=== PATIENT | male | born 1965 | race Caucasian/White ===

== ENCOUNTER → 2018-09-03 | Outpatient (CLI) | payer OTHER ==
[~2018-09-03] MED LIST: BACL10 PO; ETOD500CR PO; MUPIROCIN15 GM TOP; Neurontin 300300 MG PO; TRAM50 PO
== END ==
LOC: LAB EV 09:52 → LAB SHORT 09:52
DX: L02.01 Cutaneous abscess of face (principal)
CPT/HCPCS: 87070; 87075; 87205

== ENCOUNTER 2018-09-05 07:30 | Inpatient (IN) | payer OTHER ==
[~2018-09-05] VITALS: Ht 175.3 cm; Wt 237.0 kg
[2018-10-18] MEDS ORDERED: ACET325 PO (14:29)
--- NOTE | 2018-10-24 09:40 | NUR ---
Ambulatory in Day Surgery. History, Chart, Medications and Allergies reviewed before start of procedure.Patient confirms NPO status and agrees with scheduled surgery.
--- NOTE | 2018-10-24 15:27 | NUR ---
10/24/18 1527 Savannah Michael VERIFICATIONS: EDIT CHART.
--- NOTE | 2018-10-24 18:39 | NUR ---
SUMMARY PT IS TOLERATING PO INTAKE, PAIN IS MANAGED WITH PO OXYCODONE. VSS, POLAR PACK TO RIGHT HIP, DRSG REMAINS C/D/I. ABX INFUSED PER EMAR.
--- NOTE | 2018-10-25 05:31 | NUR ---
SHIFT SUMMARY PT A&O X4 T/O SHIFT. POD# 1 R MARCELINO; DRESSING CDI T/O SHIFT. ICE TO R HIP PRN. PPPX4; PT DENIES N/T IN EXT. PAIN MANGED PER EMAR. BED MOBILE. PT DENIES NAUSEA; TOLERATES PO INTAKE WELL. RA; DENIES SOB. BREONNA'S AND SCD'S TO BLE'S. CALL LIGHT IN REACH; PT DEMONSTRATES USE. WCTM UNTIL REPORT TO DAY SHIFT RN.
[2018-10-25 06:00] LABS: BASOPHILS ABSOLUTE AUTO 0.02 K/mm3 (0.00-0.23); BASOPHILS PERCENT AUTO 0 % (0-2); EOSINOPHILS ABSOLUTE AUTO 0.05 K/mm3 (0.00-0.68); EOSINOPHILS PERCENT AUTO 0 % (0-6); Hematocrit 37.8 % (37.0-53.0); Hemoglobin 12.2 g/dL (13.5-17.5); IMMATURE GRAN ABSOLUTE AUTO 0.04 K/mm3 (0.00-0.10); IMMATURE GRAN PERCENT AUTO 0 % (0-1); LYMPHOCYTES ABSOLUTE AUTO 1.96 K/mm3 (0.84-5.20); LYMPHOCYTES PERCENT AUTO 17 % (21-46); MONOCYTES ABSOLUTE AUTO 1.03 K/mm3 (0.16-1.47); MONOCYTES PERCENT AUTO 9 % (4-13); Mean Corpuscular HGB Conc 32.3 g/dL (31.5-36.5); Mean Corpuscular Volume 93 fL (80-100); Mean Platelet Volume 9.9 fL (9.1-12.4); NEUTROPHILS PERCENT AUTO 74 % (41-73); Platelet Count 286 K/mm3 (150-400); RDW Coefficient Variation 12.9 % (11.7-14.2); Red Blood Cell Count 4.06 M/mm3 (4.30-5.90)
[2018-10-25 06:19] LABS: Anion Gap 7 mmol/L (6-16); Blood Urea Nitrogen 16 mg/dL (8-24); Bun/Creatinine Ratio 17.6 (12.0-20.0); CO2, Blood 27 mmol/L (21-32); Calcium, Blood 8.5 mg/dL (8.5-10.1); Chloride, Blood 104 mmol/L (98-108); Creatinine, Blood 0.91 mg/dL (0.60-1.20); Glomerular Filtration Rate >60 (60-); Glucose, Blood 129 mg/dL (70-99); Magnesium, Blood 2.3 mg/dL (1.6-2.4); Sodium, Blood 138 mmol/L (136-145)
[2018-10-25] MEDS ORDERED: OXYC5 PO (17:23)
[2018-10-25] MEDS ORDERED: ASPI325EC PO (17:40)
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
== END 2018-10-25 17:55 | disposition home or self-care (01) | DRG 470 ==
LOC: PRE IP 07:30 → SURS 10-24 09:08 → PRE IP 10-24 10:45 → SURS 10-24 15:46
PROVIDERS: ADMIT Orthopaedic Surgery
PROC: 8E0YXBZ Computer Assisted Procedure of Lower Extremity (ICD-10-PCS; 2018-10-24)
PROC: 0SR903A Replacement of Right Hip Joint with Ceramic Synthetic Substitute, Uncemented, Open Approach (ICD-10-PCS; principal; 2018-10-24 10:45)
DX: M16.51 Unilateral post-traumatic osteoarthritis, right hip (principal); T14.90XS Injury, unspecified, sequela; I10 Essential (primary) hypertension; J44.9 Chronic obstructive pulmonary disease, unspecified; Z88.2 Allergy status to sulfonamides; Z87.891 Personal history of nicotine dependence
CPT/HCPCS: 36415; 72170; 80048; 83735; 85025; 86850; 86900; 86901; 88300; 97110; 97116; 97162; 97166; 97530; 97535; C1713; C1776; J0171; J0360; J0690; J0735; J1100; J1885; J2250; J2405; J2795; J3010; J3370; J7120

== ENCOUNTER 2019-07-11 05:12 | Emergency (ER) | payer OTHER ==
[~2019-07-11] VITALS: Ht 175.3 cm; Wt 106.1 kg
[~2019-07-11 05:12] MED LIST changes: +ACET325 PO; +ASPI325EC PO; +OXYC5 PO
[2019-07-11 05:59] LABS: BASOPHILS ABSOLUTE AUTO 0.09 K/mm3 (0.00-0.23); BASOPHILS PERCENT AUTO 1 % (0-2); EOSINOPHILS ABSOLUTE AUTO 0.43 K/mm3 (0.00-0.68); EOSINOPHILS PERCENT AUTO 6 % (0-6); Hematocrit 45.8 % (37.0-53.0); Hemoglobin 15.3 g/dL (13.5-17.5); IMMATURE GRAN ABSOLUTE AUTO 0.01 K/mm3 (0.00-0.10); IMMATURE GRAN PERCENT AUTO 0 % (0-1); LYMPHOCYTES ABSOLUTE AUTO 3.39 K/mm3 (0.84-5.20); LYMPHOCYTES PERCENT AUTO 44 % (21-46); MONOCYTES ABSOLUTE AUTO 0.68 K/mm3 (0.16-1.47); MONOCYTES PERCENT AUTO 9 % (4-13); Mean Corpuscular HGB 30.1 pg (26.0-34.0); Mean Corpuscular HGB Conc 33.4 g/dL (31.5-36.5); Mean Corpuscular Volume 90 fL (80-100); Mean Platelet Volume 9.9 fL (9.1-12.4); NEUTROPHILS ABSOLUTE AUTO 3.17 K/mm3 (1.96-9.15); NEUTROPHILS PERCENT AUTO 41 % (41-73); Platelet Count 308 K/mm3 (150-400); RDW Coefficient Variation 12.3 % (11.7-14.2); RDW Standard Deviation 40.9 fL (35.1-46.3); Red Blood Cell Count 5.08 M/mm3 (4.30-5.90); White Blood Cell Count 7.77 K/mm3 (4.00-11.30)
[2019-07-11] MEDS ORDERED: BACL10 (06:12)
[2019-07-11 06:26] LABS: Alanine Aminotransfer (ALT/SGP 37 U/L (12-78); Albumin, Blood 3.8 g/dL (3.4-5.0); Alk Phos 83 U/L (50-136); Anion Gap 9 mmol/L (6-16); Aspartate Aminotrans (AST/SGOT 24 U/L (12-37); Bilirubin, Total 0.6 mg/dL (0.1-1.0); Blood Urea Nitrogen 21 mg/dL (8-24); Bun/Creatinine Ratio 19.6 (12.0-20.0); CO2, Blood 25 mmol/L (21-32); Calcium, Blood 8.9 mg/dL (8.5-10.1); Chloride, Blood 107 mmol/L (98-108); Creatinine, Blood 1.07 mg/dL (0.60-1.20); Globulin, Blood 3.8 g/dL (2.2-4.0); Glomerular Filtration Rate >60 (60-); Glucose, Blood 100 mg/dL (70-99); Potassium, Blood 3.7 mmol/L (3.5-5.5); Sodium, Blood 141 mmol/L (136-145); Total Protein, Blood 7.6 g/dL (6.4-8.2); Troponin I <0.015 ng/mL (0.000-0.040)
== END 2019-07-11 07:05 | disposition home or self-care (01) ==
LOC: ER 05:12
PROVIDERS: Emergency Medicine
DX: R07.9 Chest pain, unspecified (principal); Z87.891 Personal history of nicotine dependence; Z88.2 Allergy status to sulfonamides; Z88.1 Allergy status to other antibiotic agents; Z79.891 Long term (current) use of opiate analgesic; Z79.899 Other long term (current) drug therapy
CPT/HCPCS: 71046; 80053; 83690; 84484; 85025; 93005; 93010; 99285-25

== ENCOUNTER → 2021-01-15 | Outpatient (CLI) | payer OTHER ==
[~2021-01-15] MED LIST changes: +BACL10
[2021-01-16 09:11] LABS: HBSAG SCREEN Negative (Negative); HCV ANTIBODY <0.1 (0.0-0.9); HIV SCREEN 4TH GENERATION WRFX Non Reactive (Non Reactive)
== END ==
LOC: LAB SHORT 08:45 → LAB EV 08:45
PROVIDERS: Physician Assistant
DX: Z11.59 Encounter for screening for other viral diseases (principal); Z11.4 Encounter for screening for human immunodeficiency virus [HIV]; Z20.9 Contact with and (suspected) exposure to unspecified communicable disease
CPT/HCPCS: 84460; 86317; 86803; 87340; 87389

== ENCOUNTER → 2021-08-26 | Outpatient (CLI) | payer OTHER ==
[2021-08-27 20:11] LABS: CHLAMYDIA TRACHOMATIS, NAA Negative (Negative)
== END | disposition home or self-care (01) ==
LOC: LAB SHORT 15:52
PROVIDERS: Family Medicine
DX: Z20.9 Contact with and (suspected) exposure to unspecified communicable disease (principal)
CPT/HCPCS: 87491; 87591

== ENCOUNTER 2021-10-16 11:32 | Day surgery (SDC) | payer OTHER ==
[~2021-10-16] VITALS: Ht 175.3 cm; Wt 84.5 kg
[~2021-10-16 11:32] MED LIST changes: +NALOXONE HC1 MG/1 ML; +Norco 10-325 T1 EACH PO; +VITAMIN D310 MC4 PO
--- NOTE | 2021-10-16 12:20 | NUR ---
History, Chart, Medications and Allergies reviewed before start of procedure.Patient confirms NPO status and agrees with scheduled surgery. Lungs clear T/O to Auscultation.
--- NOTE | 2021-10-16 16:15 | NUR ---
Discharge instructions reviewed with patient. Patient verbalizes understanding. Copy given to patient to take home. Patient States Post-Procedure ride home has been arranged. Discharged via wheelchair to private car for ride home. [address] C/D/I PT IS STABLE DISCHARGE INSTRUCTIONS GIVEN TO PT AND S.O. VERBLIZED UNDERSTANDING
== END 2021-10-16 22:55 | disposition home or self-care (01) ==
LOC: ORSCMMR 11:32 → ORD 13:00 → ORSCMMR 13:00
DX: J44.9 Chronic obstructive pulmonary disease, unspecified (principal); Z79.82 Long term (current) use of aspirin; E78.5 Hyperlipidemia, unspecified; F17.210 Nicotine dependence, cigarettes, uncomplicated
CPT/HCPCS: 49659; S2900; A9270; C1781; J0690; J1100; J2250; J2405; J2704; J2765; J3010; J7120

== ENCOUNTER → 2023-04-01 | Outpatient (CLI) | payer OTHER | LOC: LAB SHORT 18:49 → LAB 18:49 | DX: L03.019 Cellulitis of unspecified finger (principal) | CPT/HCPCS: 87070; 87075; 87076; 87147; 87185; 87205 ==

== ENCOUNTER 2024-09-15 19:14 | Emergency (ER) | payer OTHER ==
[~2024-09-15] VITALS: Ht 175.3 cm; Wt 90.7 kg
[2024-09-15 19:19] VITALS: BP 152/97
[2024-09-15] MEDS ORDERED: Voltaren100 GM TOP (21:09)
[2024-09-15] MEDS ORDERED: Robaxin750 MG PO (21:09)
== END 2024-09-15 21:36 | disposition home or self-care (01) ==
LOC: ER 19:14
DX: S01.21XA Laceration without foreign body of nose, initial encounter (principal); M25.551 Pain in right hip; M25.561 Pain in right knee; M25.521 Pain in right elbow; Z88.2 Allergy status to sulfonamides; Z88.1 Allergy status to other antibiotic agents; Z79.899 Other long term (current) drug therapy; Z87.891 Personal history of nicotine dependence; V29.31XA Electric (assisted) bicycle (driver) (passenger) injured in unspecified nontraffic accident, initial encounter
CPT/HCPCS: 12011; 70450; 73070; 73502; 73562-RT; 99285-25

== ENCOUNTER 2024-09-23 14:14 | Inpatient (IN) | payer OTHER ==
[~2024-09-23] VITALS: Ht 167.6 cm; Wt 100.7 kg
[~2024-09-23 14:14] MED LIST changes: +Robaxin750 MG PO; +Voltaren100 GM TOP
[2024-09-23 14:59] LABS: BASOPHILS ABSOLUTE AUTO 0.12 K/mm3 (0.00-0.23); BASOPHILS PERCENT AUTO 1 % (0-2); EOSINOPHILS PERCENT AUTO 4 % (0-6); Hematocrit 45.3 % (37.0-53.0); Hemoglobin 15.7 g/dL (13.5-17.5); IMMATURE GRAN ABSOLUTE AUTO 0.02 K/mm3 (0.00-0.10); IMMATURE GRAN PERCENT AUTO 0 % (0-1); LYMPHOCYTES ABSOLUTE AUTO 1.56 K/mm3 (0.84-5.20); LYMPHOCYTES PERCENT AUTO 14 % (21-46); MONOCYTES ABSOLUTE AUTO 0.59 K/mm3 (0.16-1.47); MONOCYTES PERCENT AUTO 5 % (4-13); Mean Corpuscular HGB 31.8 pg (26.0-34.0); Mean Corpuscular HGB Conc 34.7 g/dL (31.5-36.5); Mean Corpuscular Volume 92 fL (80-100); Mean Platelet Volume 9.8 fL (9.1-12.4); NEUTROPHILS ABSOLUTE AUTO 8.89 K/mm3 (1.96-9.15); NEUTROPHILS PERCENT AUTO 77 % (41-73); Platelet Count 317 K/mm3 (150-400); RDW Coefficient Variation 12.8 % (11.7-14.2); Red Blood Cell Count 4.94 M/mm3 (4.30-5.90); White Blood Cell Count 11.58 K/mm3 (4.00-11.30)
[2024-09-23] MEDS ORDERED: Aspirin 325 MG Tab PO ONE (15:00)
[2024-09-23] MEDS ORDERED: Nitroglycerin 0.4 MG SUBL SL PRN (15:05)
[2024-09-23 15:18] LABS: Albumin, Blood 4.1 g/dL (3.4-5.0); Albumin/Globulin Ratio 1.1 (0.8-1.8); Bilirubin, Total 0.5 mg/dL (0.1-1.0); Bun/Creatinine Ratio 18.1 (12.0-20.0); Creatinine, Blood 0.88 mg/dL (0.60-1.20); Globulin, Blood 3.6 g/dL (2.2-4.0); Potassium, Blood 3.9 mmol/L (3.5-5.5); Total Protein, Blood 7.7 g/dL (6.4-8.2)
[2024-09-23] MEDS ORDERED: Clopidogrel Bisulfate 300 MG Cap PO STA (16:55)
[2024-09-23] MEDS ORDERED: Metoprolol Succinate 25 MG TABCR PO SCH (17:00)
[2024-09-23] MEDS ORDERED: Atorvastatin 40 MG Tab PO SCH (17:00)
[2024-09-23] MEDS ORDERED: Nitroglycerin 1 INCH/GM PKT TOP SCH (17:00)
[2024-09-23 17:39] LABS: Anti-Xa UFH, PHA Monitoring <0.10 IU/mL; International Normalized Ratio 0.99; Prothrombin Time Results 10.6 Sec (9.7-11.5)
[2024-09-23] MEDS ORDERED: NS 1,000 ML IV SCH (18:53)
[2024-09-23] MEDS ORDERED: Ondansetron HCl 2 MG / ML 2ML Vial IV PRN (19:00)
[2024-09-23] MEDS ORDERED: FLU VACC TS2024-25(6MOS UP)/PF 45 MCG/0.5 ML SYRINGE IM SCH (19:00)
[2024-09-23] MEDS ORDERED: Dose Adjust by Pharmacy XX STA (19:24)
[2024-09-23] MEDS ORDERED: Heparin Sodium 5000 Units/ML 1ML MDV IV ONE (19:25)
[2024-09-23] MEDS ORDERED: Heparin Sodium,Porcine/0.5 NS 500 ML IV SCH (19:25)
[2024-09-23 22:00] VITALS: BP 118/77
[2024-09-23] MEDS ORDERED: ASCO500 (22:05)
[2024-09-24] VITALS (13 sets, daily range): BP systolic 105–145; BP diastolic 71–94
[2024-09-24 02:16] LABS: Hematocrit 40.8 % (37.0-53.0); Mean Corpuscular HGB 31.9 pg (26.0-34.0); Mean Corpuscular HGB Conc 34.3 g/dL (31.5-36.5); Mean Corpuscular Volume 93 fL (80-100); Mean Platelet Volume 9.7 fL (9.1-12.4); Platelet Count 278 K/mm3 (150-400); RDW Coefficient Variation 12.8 % (11.7-14.2); RDW Standard Deviation 44.2 fL (35.1-46.3); Red Blood Cell Count 4.39 M/mm3 (4.30-5.90); White Blood Cell Count 8.88 K/mm3 (4.00-11.30)
[2024-09-24 02:34] LABS: Bun/Creatinine Ratio 18.3 (12.0-20.0); Calcium, Blood 8.7 mg/dL (8.5-10.1); Creatinine, Blood 0.93 mg/dL (0.60-1.20); Potassium, Blood 4.1 mmol/L (3.5-5.5)
[2024-09-24] MEDS ORDERED: Dose Adjust by Pharmacy XX STA (03:18)
[2024-09-24] MEDS ORDERED: Heparin Sodium 5000 Units/ML 1ML MDV IV ONE (03:20)
[2024-09-24] MEDS ORDERED: Pantoprazole Sodium 20 MG Tab PO SCH (06:00)
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
[2024-09-24] MEDS ORDERED: Heparin Sodium 1000 Units/ML 10ML MDV ONE ×2 (07:35→08:13)
[2024-09-24] MEDS ORDERED: NS 250 ML IV ONE (07:35)
[2024-09-24] MEDS ORDERED: Nitroglycerin 2 MG/20 ML BTL ONE (07:35)
[2024-09-24] MEDS ORDERED: Verapamil HCL 2.5 MG/ML 2ML Injection ONE (07:35)
[2024-09-24] MEDS ORDERED: NS 0 ML IV ONE (07:35)
[2024-09-24] MEDS ORDERED: NS 1,000 ML IV ONE ×2 (07:37→07:54)
[2024-09-24] MEDS ORDERED: Midazolam HCl 1MG / ML 2ML Vial ONE ×3 (07:37→08:23)
[2024-09-24] MEDS ORDERED: FentaNYL Citrate 50 MCG/ML 2 ML Injection ONE ×3 (07:37→08:23)
[2024-09-24] MEDS ORDERED: NiCARdipine HCL 1,000 MCG/5 ML SYR ONE (07:39)
[2024-09-24 08:07] LABS: CHOL/HDL RATIO 3.4; Cholesterol 153 mg/dL (50-200); HDL Cholesterol 45 mg/dL (>39); LDL/HDL RATIO 2.1; Low Density Lipoprotein Chol 96 mg/dL (0-110); Triglycerides 58 mg/dL (30-160); Very Low Density Lipoprot Chol 11 mg/dL (6-32)
[2024-09-24] MEDS ORDERED: Clopidogrel Bisulfate 300 MG Cap ONE (08:38)
[2024-09-24] MEDS ORDERED: Clopidogrel Bisulfate 75 MG Tab PO SCH (09:00)
[2024-09-24] MEDS ORDERED: Aspirin 81 MG Chew PO SCH (09:00)
[2024-09-24] MEDS ORDERED: NS 1,000 ML IV SCH (09:40)
--- NOTE | 2024-09-24 14:43 | NUR ---
Upon receiving a referral for spiritual care, I visited the patient. He told me about his cardiac event, the stint that was placed and about his Yarsani maura. He asks if Father Raymond is in, but he is not. He is then very happy to have this Tailer Out provide a prayer which I supply. Patient voices his appreciation and shows signs of greater peace. I will cotninue to remain available to patient and family.
[2024-09-24] MEDS ORDERED: Polyethylene Glycol 3350 17 gm PO ONE (14:45)
--- NOTE | 2024-09-24 17:38 | NUR ---
SHIFT SUMMARY: PT HAS BEEN A&Ox4, COOPERATIVE W/CARE, ABLE TO MAKE NEEDS KNOWN. PT DENIES SOB, O2 SATS >93% ON RA. PT DENIES CHEST PAIN/PRESSURE, SR ON MONITOR W/RATE MOSTLY 60s. PT TO/FROM SEMICONDUCTOR WAFERS TESTER FOR PROCEDURE, R RADIAL SITE HAS BEEN FULLY RECOVERED WNL, TRANSPARENT DRESSING AND ARMBOARD IN PLACE. HEART HEALTHY DIET IN PLACE, EDUCATION PROVIDED RE: EATING HEART HEALTHY ONCE DISCHARGED. PT HAS BEEN FAIRLY INDEPENDENT IN ROOM, APPEARS MINDFUL OF OVERUSING HIS RUE, SBA FOR MANAGEMENT OF CORDS/LINES. PT REPORTS NO BM FOR "TWO DAYS", PROVIDER NOTIFIED THIS AFTERNOON, ORDERS RECEIVD AND PLACED FOR BOWEL CARE REGIMEN, NO BM SO FAR THIS SHIFT. PT RESTING QUIETLY IN ROOM W/CALL LIGHT IN REACH.
[2024-09-24] MEDS ORDERED: Docusate Sodium 100 MG Cap PO SCH (21:00)
[2024-09-24] MEDS ORDERED: Sennosides 8.6 MG Tab PO SCH (21:00)
[2024-09-25 00:55] VITALS: BP 120/82
[2024-09-25 03:55] VITALS: BP 138/80
[2024-09-25 04:14] LABS: BASOPHILS ABSOLUTE AUTO 0.08 K/mm3 (0.00-0.23); BASOPHILS PERCENT AUTO 1 % (0-2); EOSINOPHILS ABSOLUTE AUTO 0.26 K/mm3 (0.00-0.68); EOSINOPHILS PERCENT AUTO 2 % (0-6); Hematocrit 43.8 % (37.0-53.0); Hemoglobin 15.3 g/dL (13.5-17.5); IMMATURE GRAN ABSOLUTE AUTO 0.03 K/mm3 (0.00-0.10); IMMATURE GRAN PERCENT AUTO 0 % (0-1); LYMPHOCYTES ABSOLUTE AUTO 1.25 K/mm3 (0.84-5.20); LYMPHOCYTES PERCENT AUTO 11 % (21-46); MONOCYTES ABSOLUTE AUTO 0.66 K/mm3 (0.16-1.47); MONOCYTES PERCENT AUTO 6 % (4-13); Mean Corpuscular HGB 31.8 pg (26.0-34.0); Mean Corpuscular HGB Conc 34.9 g/dL (31.5-36.5); Mean Corpuscular Volume 91 fL (80-100); Mean Platelet Volume 9.7 fL (9.1-12.4); NEUTROPHILS ABSOLUTE AUTO 9.26 K/mm3 (1.96-9.15); NEUTROPHILS PERCENT AUTO 80 % (41-73); Platelet Count 290 K/mm3 (150-400); RDW Coefficient Variation 12.8 % (11.7-14.2); RDW Standard Deviation 42.9 fL (35.1-46.3); Red Blood Cell Count 4.81 M/mm3 (4.30-5.90); White Blood Cell Count 11.54 K/mm3 (4.00-11.30)
[2024-09-25 04:34] LABS: Calcium, Blood 9.3 mg/dL (8.5-10.1); Creatinine, Blood 0.83 mg/dL (0.60-1.20); Potassium, Blood 4.2 mmol/L (3.5-5.5)
--- NOTE | 2024-09-25 06:57 | NUR ---
SHIFT SUMMARY: A&OX4, PLEASANT AND APPRECIATIVE OF CARE. VSS ON RA. SR 70-80'S. DENIES CP/PRESSURE THIS SHIFT. NO CHANGES IN ECG THIS MORNING. ACCESS SITE TO RIGHT WRIST IS SOFT, FREE FROM HEMATOMA, WITH DRESSING C/D/I. ARM BOARD REMAINS IN PLACE. DENIES PAIN. TOLERATING A REGULAR DIET. VOIDING IN URINAL INDEPENDENTLY AT BEDSIDE. NO BM THIS SHIFT. BOWEL CARE ADMINISTERED. BED IN LOWEST POSITION, CALL LIGHT WITHIN REACH.
[2024-09-25 07:39] VITALS: BP 121/77
[2024-09-25] MEDS ORDERED: Lipitor80 MG PO (09:39)
[2024-09-25] MEDS ORDERED: ASPI81CH PO (09:39)
[2024-09-25] MEDS ORDERED: METO25ER PO (09:40)
[2024-09-25] MEDS ORDERED: CLOP75 PO (09:40)
[2024-09-25] MEDS ORDERED: NITR.4SL SL (09:40)
[2024-09-25] MEDS ORDERED: PANT40 PO (09:41)
[2024-09-25 10:10] VITALS: BP 99/82
--- NOTE | 2024-09-25 12:37 | NUR ---
Discharge note. Pt was hypotensive this morning with MD rounds. Pt was monitored and rechecked after a couple hours and had improved. Pt reported a little bit of lightheadness but walked in the halls with staff and reported that he felt well enough to discharge. Pt was very irritable and ready to get home. MD was updated before discharge. Follow up PCP appt is scheduled for tomorrow. Education provided on the importance of medication compliance. Pt was able to discharge home. Brother was ride.All questions were answered. All belongings were taken with Pt. Pt was escorted to the door by staff.
== END 2024-09-25 12:15 | disposition home or self-care (01) | DRG 322 ==
LOC: ER 14:14 → PCU 18:56 → ERHOLD 18:56 → PCU 21:42
PROVIDERS: Internal Medicine Cardiovascular Disease; Nurse Practitioner Acute Care; Physician Assistant; ADMIT Internal Medicine
PROC: 027034Z Dilation of Coronary Artery, One Artery with Drug-eluting Intraluminal Device, Percutaneous Approach (ICD-10-PCS; principal; 2024-09-24)
PROC: B2111ZZ Fluoroscopy of Multiple Coronary Arteries using Low Osmolar Contrast (ICD-10-PCS; 2024-09-24)
PROC: 4A023N7 Measurement of Cardiac Sampling and Pressure, Left Heart, Percutaneous Approach (ICD-10-PCS; 2024-09-24)
DX: I21.4 Non-ST elevation (NSTEMI) myocardial infarction (principal); I10 Essential (primary) hypertension; E78.5 Hyperlipidemia, unspecified; I25.10 Atherosclerotic heart disease of native coronary artery without angina pectoris; Z88.2 Allergy status to sulfonamides; Z88.1 Allergy status to other antibiotic agents; Z79.899 Other long term (current) drug therapy; Z87.891 Personal history of nicotine dependence
CPT/HCPCS: 36415; 71045; 76937; 80048; 80053; 80061; 83690; 84484; 85025; 85027; 85347; 85520; 85610; 93005; 93010; 93306; 93454; 99152; 99153; 99285-25; A9270; C1725; C1769; C1874; C1887; C9600; J1644; J2250; J2470; J3010; J7030; J7050; Q9967

== ENCOUNTER 2025-02-23 13:52 | Observation (INO) | payer OTHER ==
[~2025-02-23] VITALS: Ht 175.3 cm; Wt 104.0 kg
[~2025-02-23 13:52] MED LIST changes: +ASCO500; +ASPI81CH PO; +CLOP75 PO; +Lipitor80 MG PO; +METO25ER PO; +NITR.4SL SL; +PANT40 PO
[2025-02-23 14:21] LABS: BASOPHILS ABSOLUTE AUTO 0.14 K/mm3 (0.00-0.23); BASOPHILS PERCENT AUTO 1 % (0-2); EOSINOPHILS ABSOLUTE AUTO 0.49 K/mm3 (0.00-0.68); EOSINOPHILS PERCENT AUTO 5 % (0-6); Hematocrit 46.5 % (37.0-53.0); Hemoglobin 15.3 g/dL (13.5-17.5); IMMATURE GRAN ABSOLUTE AUTO 0.03 K/mm3 (0.00-0.10); IMMATURE GRAN PERCENT AUTO 0 % (0-1); LYMPHOCYTES ABSOLUTE AUTO 4.68 K/mm3 (0.84-5.20); LYMPHOCYTES PERCENT AUTO 47 % (21-46); MONOCYTES ABSOLUTE AUTO 0.81 K/mm3 (0.16-1.47); MONOCYTES PERCENT AUTO 8 % (4-13); Mean Corpuscular HGB Conc 32.9 g/dL (31.5-36.5); Mean Corpuscular Volume 93 fL (80-100); NEUTROPHILS ABSOLUTE AUTO 3.80 K/mm3 (1.96-9.15); NEUTROPHILS PERCENT AUTO 38 % (41-73); NRBC ABSOLUTE 0.00 K/mm3 (0.00-0.02); NRBC Auto 0.0 /100 WBC (0.0-0.2); Platelet Count 273 K/mm3 (150-400); RDW Coefficient Variation 12.6 % (11.7-14.2); RDW Standard Deviation 43.2 fL (35.1-46.3)
[2025-02-23 14:45] LABS: Alanine Aminotransfer (ALT/SGP 84.0 U/L (12-78); Albumin, Blood 3.8 g/dL (3.4-5.0); Albumin/Globulin Ratio 1.1 (0.8-1.8); Anion Gap 8.0 mmol/L (3-11); Aspartate Aminotrans (AST/SGOT 50.0 U/L (12-37); Bilirubin, Total 0.6 mg/dL (0.1-1.0); Blood Urea Nitrogen 18.0 mg/dL (8-24); CO2, Blood 27.0 mmol/L (21-32); Calcium, Blood 8.5 mg/dL (8.5-10.1); Chloride, Blood 107.0 mmol/L (98-108); Creatinine, Blood 0.8 mg/dL (0.60-1.20); Globulin, Blood 3.5 g/dL (2.2-4.0); Glucose, Blood 115.0 mg/dL (70-99); Potassium, Blood 3.9 mmol/L (3.5-5.5); Sodium, Blood 138.0 mmol/L (136-145); Total Protein, Blood 7.3 g/dL (6.4-8.2)
[2025-02-23 17:54] VITALS: BP 127/83
[2025-02-23 18:33] VITALS: BP 140/60
--- NOTE | 2025-02-23 19:02 | NUR ---
ADMISSION NOTE: PATIENT ARRIVES TO ROOM VIA WHEELCHAIR AT 1751 FROM ER FOR DX'S OF CP. PATIENT ADMISSION, SKIN ASSESSMENT AND MEDRIC COMPLETED. PATIENT A/OX4, ANSWER TO QUESTIONS APPROPRIATELY AND ABLE TO MAKE NEEDS KNOWN. PATIENT DENIES CP/PRESSURE, SOB, N/V AND DIZZINESS. PATIENT ON TELE SB HR IN THE MID 50'S BPM. PATIENT ORIENTATED TO ROOM AND CALL SYSTEM. PATIENT HAS PIV TO R FOREARM SL. CALL LIGHT IN REACH
[2025-02-23 19:23] VITALS: BP 113/76
[2025-02-23] MEDS ORDERED: CefTRIAXone Sodium 1,000 MG in NS 100 ML IV SCH (20:00)
[2025-02-23] MEDS ORDERED: Lactobacil 2-S.Thermo-Bifido 1 1 Cap PO SCH (21:00)
[2025-02-23 23:49] VITALS: BP 124/78
[2025-02-24 00:44] LABS: BASOPHILS ABSOLUTE AUTO 0.13 K/mm3 (0.00-0.23); BASOPHILS PERCENT AUTO 2 % (0-2); EOSINOPHILS ABSOLUTE AUTO 0.44 K/mm3 (0.00-0.68); EOSINOPHILS PERCENT AUTO 5 % (0-6); Hematocrit 42.8 % (37.0-53.0); Hemoglobin 14.3 g/dL (13.5-17.5); IMMATURE GRAN ABSOLUTE AUTO 0.02 K/mm3 (0.00-0.10); IMMATURE GRAN PERCENT AUTO 0 % (0-1); LYMPHOCYTES ABSOLUTE AUTO 3.50 K/mm3 (0.84-5.20); LYMPHOCYTES PERCENT AUTO 41 % (21-46); MONOCYTES ABSOLUTE AUTO 0.82 K/mm3 (0.16-1.47); MONOCYTES PERCENT AUTO 10 % (4-13); Mean Corpuscular HGB Conc 33.4 g/dL (31.5-36.5); Mean Corpuscular Volume 93 fL (80-100); NEUTROPHILS ABSOLUTE AUTO 3.72 K/mm3 (1.96-9.15); NEUTROPHILS PERCENT AUTO 43 % (41-73); NRBC ABSOLUTE 0.00 K/mm3 (0.00-0.02); NRBC Auto 0.0 /100 WBC (0.0-0.2); Platelet Count 227 K/mm3 (150-400); RDW Coefficient Variation 12.5 % (11.7-14.2); RDW Standard Deviation 42.5 fL (35.1-46.3)
[2025-02-24 01:22] LABS: Alanine Aminotransfer (ALT/SGP 71.0 U/L (12-78); Albumin, Blood 3.5 g/dL (3.4-5.0); Albumin/Globulin Ratio 1.2 (0.8-1.8); Anion Gap 6.0 mmol/L (3-11); Aspartate Aminotrans (AST/SGOT 40.0 U/L (12-37); Bilirubin, Direct 0.2 mg/dL (0.0-0.3); Bilirubin, Indirect 0.2 mg/dL (0.1-0.7); Bilirubin, Total 0.4 mg/dL (0.1-1.0); Blood Urea Nitrogen 15.0 mg/dL (8-24); CO2, Blood 26.0 mmol/L (21-32); Calcium, Blood 8.2 mg/dL (8.5-10.1); Chloride, Blood 111.0 mmol/L (98-108); Creatinine, Blood 0.88 mg/dL (0.60-1.20); Globulin, Blood 3.0 g/dL (2.2-4.0); Glucose, Blood 96.0 mg/dL (70-99); Potassium, Blood 3.8 mmol/L (3.5-5.5); Sodium, Blood 139.0 mmol/L (136-145); Total Protein, Blood 6.5 g/dL (6.4-8.2)
[2025-02-24 04:20] VITALS: BP 96/64
--- NOTE | 2025-02-24 05:47 | NUR ---
SHIFT SUMMARY PT HERE FOR CHEST PAIN. PT HAS BEEN RESTING IN BED COMFORTABLY OVERNIGHT. HE HAS BEEN AOX4, CALM AND COOPERATIVE. HE IS ON TELE, WAS SBRADY 38 ONE TIME OVERNIGHT, PT ASYMPTOMATIC. PT HAS HAD NO COMPLAINTS OF CHEST PAIN OVERNIGHT. PT HAS BEEN INDEPENDENT IN RM OVERNIGHT. PT HAD UNEVENTFUL NIGHT.
[2025-02-24 07:33] VITALS: BP 98/64
[2025-02-24] MEDS ORDERED: Enoxaparin 40 MG/0.4 ML SYR SC SCH (09:00)
[2025-02-24 11:34] VITALS: BP 102/82
[2025-02-24] MEDS ORDERED: VISBIOME 112.51 EACH PO (14:23)
[2025-02-24] MEDS ORDERED: AMOCLA875 PO (14:24)
--- NOTE | 2025-02-24 15:01 | NUR ---
PT DISCHARGED WITH DC INSTRUCTIONS. DECLINED WHEELCHAIR, STAFF ESCORT TO ELEVATOR AND PT WILL AWAIT HIS RIDE OUTSIDE. PT HAS DENIED CHEST PAIN ALL DAY. F/U WITH [facility] AND [facility]
== END 2025-02-24 13:00 | disposition home or self-care (01) ==
LOC: ER 13:52 → MEDS 13:53
PROVIDERS: Student in an Organized Health Care Education/Training Program; ADMIT Family Medicine
DX: I25.119 Atherosclerotic heart disease of native coronary artery with unspecified angina pectoris (principal); I10 Essential (primary) hypertension; K21.9 Gastro-esophageal reflux disease without esophagitis; J18.9 Pneumonia, unspecified organism; Z88.1 Allergy status to other antibiotic agents; Z88.2 Allergy status to sulfonamides; Z79.82 Long term (current) use of aspirin; Z79.899 Other long term (current) drug therapy
CPT/HCPCS: 36415; 71046; 80048; 80053; 80076; 83880; 84145; 84484; 85025; 93005; 93010; 96365; 96367; 99285-25; A9270; G0378; J0456; J0696; J1650; J7050